=== PATIENT | male | born 1995 | race Caucasian/White ===

== ENCOUNTER 2017-06-30 18:31 | Emergency (ER) | payer BC, OTHER ==
[2017-06-30] MEDS ORDERED: Cephalexin 500 MG Cap PO ONE (19:27)
--- NOTE | 2017-06-30 21:17 | ER ---
DATE SEEN: 06/30/2017 TIME SEEN: 1900 hours. REASON FOR VISIT: Laceration. HISTORY OF PRESENT ILLNESS: This is a 22-year-old male who was working in a trailer and a hitch fell on his left hand. He complains of a laceration of the left middle finger. REVIEW OF SYSTEMS: No fever or chills. PAST MEDICAL HISTORY: Up-to-date on immunizations. PHYSICAL EXAMINATION: VITAL SIGNS: Afebrile. Blood pressure is normal. EXTREMITIES: Left hand showed a superficial laceration of the middle phalanx with some shearing force and skin hanging, a small puncture wound in the middle. There is also another similar laceration around the pulp. They both measure approximately 3 cm in size in total. X-RAY: X-ray of the left hand was negative for any fracture, dislocation, or foreign bodies. IMPRESSION: Superficial lacerations. PLAN: No need for suturing. Bleeding was controlled already. I used forceps and surgical scissors to debride the skin. The nurse dressed the wound. The patient was sent home on cephalexin for antibiotic prophylaxis with followup in the office in 1 week, sooner if needed. /[id number] BE[address]STEFANIE
--- NOTE | 2017-07-01 14:37 | CR ---
INDICATION: Caught under trailer hitch, middle finger area. LEFT HAND: Three views of the left hand revealed no evidence of a fracture, dislocation, or other significant bone or joint abnormality. MICHELLE
== END 2017-06-30 19:31 | disposition home or self-care (01) ==
LOC: FB.ED 18:31
DX: S61.213A Laceration without foreign body of left middle finger without damage to nail, initial encounter (principal); W19.XXXA Unspecified fall, initial encounter
CPT/HCPCS: 73130; 99283; A9270